=== PATIENT | female | born 1960 | race Hispanic/Latino ===

== ENCOUNTER 2018-09-08 06:14 | Emergency (ER) | payer OTHER ==
[2018-09-08] MEDS ORDERED: Albuterol-Ipratrop 3 mg / 0.5 (3 ml) UD IH STA (07:37)
[2018-09-08] MEDS ORDERED: Albuterol-Ipratrop 3 mg / 0.5 (3 ml) UD ONE (07:53)
[2018-09-08] MEDS ORDERED: Amoxicillin-Clav 875-125 mg Tab PO STA (08:25)
[2018-09-08] MEDS ORDERED: Amoxicillin-Clav 875-125 mg Tab PO ONE (08:38)
--- NOTE | 2018-09-08 08:43 | C.PDOC ---
History Of Present Illness 58 y/o female presents to the ER complaining of cough which has been present for the past 3 weeks. Patient states that she noted some streaks of blood when she coughed today. Denies having fever, chills, nosebleed, CP, SOB, nausea, and vomiting. Time Seen by Provider: 09/08/18 07:20 Chief Complaint (Nursing): Cough, Cold, Congestion History Per: Patient History/Exam Limitations: no limitations Onset/Duration Of Symptoms: Days Current Symptoms Are (Timing): Still Present Severity: Moderate Past Medical History Reviewed: Historical Data, Nursing Documentation, Vital Signs Vital Signs: Last Vital Signs Temp 97.9 F 09/08/18 06:24 Pulse 96 H 09/08/18 06:24 Resp 16 09/08/18 06:57 BP 168/91 H 09/08/18 06:24 Pulse Ox 92 L 09/08/18 06:57 - Medical History PMH: No Chronic Diseases Surgical History: No Surg Hx Family History: States: No Known Family Hx - Social History Hx Alcohol Use: Yes Hx Substance Use: No - Immunization History Hx Tetanus Toxoid Vaccination: No Hx Influenza Vaccination: No Hx Pneumococcal Vaccination: No Review Of Systems Except As Marked, All Systems Reviewed And Found Negative. Constitutional: Negative for: Fever, Chills Cardiovascular: Negative for: Chest Pain Respiratory: Positive for: Cough. Negative for: Shortness of Breath Gastrointestinal: Negative for: Nausea, Vomiting Physical Exam - Physical Exam Appears: Non-toxic, No Acute Distress Skin: Normal Color, Warm, Dry Head: Atraumatic, Normacephalic Eye(s): bilateral: Normal Inspection Nose: Normal Oral Mucosa: Moist Throat: Normal, No Erythema, No Exudate Neck: Supple Chest: Symmetrical Cardiovascular: Rhythm Regular Respiratory: Normal Breath Sounds, No Rales, No Rhonchi, No Wheezing Neurological/Psych: Oriented x3, Normal Speech ED Course And Treatment O2 Sat by Pulse Oximetry: 97 (RA) Pulse Ox Interpretation: Normal Medical Decision Making Medical Decision Making: Plan: --EKG --CXR --Augmentin PO --Albuterol Disposition Counseled Patient/Family Regarding: Studies Performed, Diagnosis - Disposition Referrals: [facility] [Outside] [facility] [Outside] Disposition: HOME/ ROUTINE Disposition Time: 10:45 Condition: GOOD Additional Instructions: Return to ED if any increase symptoms Prescriptions: Albuterol HFA [Ventolin HFA 90 mcg/actuation (8 g)] 2 puff IH [id number] #2 puff Amoxicillin/Clavulanate [Augmentin 875 MG-125 MG] 1 tab PO BID #14 tab Instructions: Upper Respiratory Infection (ED) Forms: [facility] (American) - POA Present On Arrival: None - Clinical Impression Clinical Impression: Influenza-like illness - PA / ATMOSPHERIC TECHNICIAN / Resident Statement MD/DO has reviewed & agrees with the documentation as recorded. - Scribe Statement The provider has reviewed the documentation as recorded by the Armando Galvin Provider Attestation All medical record entries made by the Apoloniaibmoreno were at my direction and personally dictated by me. I have reviewed the chart and agree that the record accurately reflects my personal performance of the history, physical exam, medical decision making, and the department course for this patient. I have also personally directed, reviewed, and agree with the discharge instructions and disposition.
[2018-09-08 08:48] VITALS: BP 119/79; PULSE 82; TEMP 97.8
[2018-09-08 08:54] VITALS: RESP 20
[2018-09-08 09:21] VITALS: O2SAT 97
--- NOTE | 2018-09-08 12:28 | RAD ---
Chest x-ray two views HISTORY: Cough. Comparison: None available. Findings: Biapical pleural thickening. Diffuse increased interstitial lung markings. Small nodular density at the right lung base may represent confluence of shadows with ribs and vessels. Tortuous aorta. Top normal heart size. Degenerative changes in the spine. Impression: Biapical pleural thickening. Diffuse increased interstitial lung markings. Small nodular density at the right lung base may represent confluence of shadows with ribs and vessels. Tortuous aorta.
--- NOTE | 2018-09-13 23:52 | CARD ---
APPROVED REPORT Date of service: 09/08/2018 EKG Measurement Heart [id number] <Conclusion> Normal sinus rhythm Possible Left atrial enlargement Nonspecific ST abnormality Abnormal ECG
== END 2018-09-08 08:56 | disposition home or self-care (01) ==
LOC: C.ER 06:14
DX: J11.1 Influenza due to unidentified influenza virus with other respiratory manifestations (principal)